=== PATIENT | male | born 2000 | race Caucasian/White ===

== ENCOUNTER 2018-11-25 10:40 | Observation (INO) | payer OTHER ==
[~2018-11-25] VITALS: Ht 185.4 cm; Wt 88.0 kg
[2018-11-25 10:43] VITALS: BP 103/49; PULSE 77; TEMP 98.6
[2018-11-25] MEDS ORDERED: ZYRTEC5 MG PO (10:54)
[2018-11-25 12:39] VITALS: BP 102/58; PULSE 63; TEMP 98.2
[2018-11-25 16:05] VITALS: BP 106/70; PULSE 78; TEMP 97.8
== END 2018-11-25 18:45 | disposition home or self-care (01) ==
LOC: SDCO 10:40 → SURG 11:00 → SDCO 11:25 → SURG 11:25 → SDCO 17:00 → SURG 18:45
PROVIDERS: ADMIT Urology
DX: N20.1 Calculus of ureter (principal); Z88.0 Allergy status to penicillin; Z88.1 Allergy status to other antibiotic agents
CPT/HCPCS: J7030